=== PATIENT | female | born 1940 | race Caucasian/White ===

== ENCOUNTER 2019-11-25 21:43 | Observation (INO) | payer MEDICARE ==
[2019-11-25] MEDS ORDERED: ASPIRIN 81 MG CHEWABLE TABLET ONE (22:26)
[2019-11-25] MEDS ORDERED: FENTANYL CITR 100 MCG/2 ML ONE (22:28)
[2019-11-25 23:03] LABS: Absolute Lymphocytes (CBC) 2.8 K/uL (0.7-4.9); Basophils % 0.5 % (0-1.3); Hematocrit 41.9 % (36.0-45.0); Lymphocytes % 41.5 % (15.3-44.8); MPV 8.2 fL (7.6-11.3); RBC Red Blood Cell Count 4.55 M/uL (3.86-4.86)
[2019-11-25 23:09] LABS: Protime INR 0.98
[2019-11-25 23:31] LABS: ALT/SGPT 34 U/L (12-78); AST/SGOT 17 U/L (15-37); Albumin 3.9 g/dL (3.4-5.0); Alkaline Phosphatase 73 U/L (45-117); BUN Blood Urea Nitrogen 23 mg/dL (7-18); Bicarbonate 30 mmol/L (21-32); Bilirubin Direct 0.2 mg/dL (0-0.2); Bilirubin Total 0.4 mg/dL (0.2-1.0); Glucose Level 117 mg/dL (74-106); NT PRO-BNP 248 pg/mL (<450); Potassium 3.5 mmol/L (3.5-5.1); Protein, Total 6.7 g/dL (6.4-8.2); Sodium Level 143 mmol/L (136-145); Troponin (Emerg Dept Use Only) < 0.02 ng/mL (0.0-0.045)
--- NOTE | 2019-11-26 00:51 | ER ---
Nurse's Notes [facility] Name: Tiara Neal Age: 79 yrs Sex: Female : 1940 Arrival Date: 11/25/2019 Time: 21:47 Bed 24 Private MD: Diagnosis: Chest pain, unspecified;Pain in left shoulder Presentation: 11/25 21:55 Presenting complaint: Patient states: L shoulder pain radiating to the L arm, ca1 intermittent, lasting 10 minutes at a time with SOB. Pain started 1-2 weeks ago. Pt has HX of heart attack and CABG. Denies cough, fever, injury to L shoulder and arm. Transition of care: patient was not received from another setting of care. Onset of symptoms was November 25, 2019. Risk Assessment: Do you want to hurt yourself or someone else? Patient reports no desire to harm self or others. Initial Sepsis Screen: Does the patient meet any 2 criteria? No. Patient's initial sepsis screen is negative. Does the patient have a suspected source of infection? No. Patient's initial sepsis screen is negative. Care prior to arrival: None. 21:55 Method Of Arrival: Wheelchair ca1 21:55 Acuity: VIANCA 3 ca1 Triage Assessment: 22:50 General: Appears in no apparent distress. Respiratory: Onset: The symptoms/episode iw began/occurred yesterday, the patient has mild shortness of breath. Respiratory: Airway is patent. Historical: - Allergies: 22:04 Codeine; ca1 - PMHx: 22:04 Myocardial infarction; Hypertension; ca1 - PSHx: 22:04 CABG; Cholecystectomy; Hysterectomy; ca1 - Immunization history:: Adult Immunizations up to date, Pneumococcal vaccine is up to date, Flu vaccine is up to date. - Social history:: Smoking status: Patient/guardian denies using tobacco, never smoked. - Ebola Screening: : Patient negative for fever greater than or equal to 101.5 degrees Fahrenheit, and additional compatible Ebola Virus Disease symptoms Patient denies exposure to infectious person Patient denies travel to an Ebola-affected area in the 21 days before illness onset No symptoms or risks identified at this time. Screenin:09 Abuse screen: Denies threats or abuse. Denies injuries from another. Nutritional iw screening: No deficits noted. Tuberculosis screening: No symptoms or risk factors identified. 11/26 02:21 Fall Risk IV access (20 points). Ambulatory Aid- Crutches/Cane/Walker (15 pts). iw Assessment: 11/25 22:09 General: Appears in no apparent distress. comfortable, Behavior is calm, cooperative. iw Pain: Complains of pain in back and chest. Neuro: Level of Consciousness is awake, alert, obeys commands, Oriented to person, place, time, situation, Moves all extremities. Full function. Cardiovascular: Rhythm is sinus rhythm. Cardiovascular: Reports chest pain, shortness of breath, Heart tones S1 S2 present Capillary refill < 3 seconds in bilateral fingers. Respiratory: Airway is patent Respiratory effort is even, unlabored, Respiratory pattern is regular, symmetrical, Breath sounds are clear bilaterally. Respiratory: Reports shortness of breath at rest on exertion. GI: Abdomen is flat, non-distended. Derm: Skin is intact, is healthy with good turgor. Musculoskeletal: Range of motion: intact in all extremities. 22:48 Reassessment: Patient appears in no apparent distress at this time. Patient and/or iw family updated on plan of care and expected duration. Pain level reassessed. Patient is alert, oriented x 3, equal unlabored respirations, skin warm/dry/pink. pt states pain hits her intermittently to left shoulder and left upper back up to neck, feels sharp, lasts a few seconds when it hits, pt denies pain at this time, pt denies need for pain medicine at this time, pt took ASA 325 mg earlier today Patient denies pain at this time. 11/26 00:37 Reassessment: Patient appears in no apparent distress at this time. Patient and/or iw family updated on plan of care and expected duration. Pain level reassessed. Patient is alert, oriented x 3, equal unlabored respirations, skin warm/dry/pink. pt agrees to be admitted for observation. Vital Signs: 11/25 22:04 Pulse 71; Resp 16; Temp 98.3(O); Pulse Ox 99% on R/A; Weight 55.79 kg (R); Height 5 ft. ca1 (152.40 cm) (R); Pain 8/10; 22:06 BP 193 / 79; iw 22:47 BP 174 / 56; Pulse 63; Resp 16; Pulse Ox 98% on R/A; Pain 0/10; iw 23:57 BP 172 / 71; Pulse 65; Resp 16; Pulse Ox 100% on R/A; iw 11/26 00:59 BP 176 / 68; Pulse 64; Resp 16; Pulse Ox 100% on R/A; Pain 0/10; iw 11/25 22:04 Body Mass Index 24.02 (55.79 kg, 152.40 cm) ca1 ED Course: 11/25 21:47 Patient arrived in ED. ds1 21:57 Wilian Norris PA is PHCP. cp 21:57 Chacorta Lepe MD is Attending Physician. cp 22:02 Triage completed. ca1 22:04 Arm band placed on right wrist. ca1 22:06 Lala Foreman, ANDRES is Primary Nurse. iw 22:09 Patient has correct armband on for positive identification. iw 22:24 XRAY Chest (1 view) In Process Unspecified. EDMS 22:48 Inserted saline lock: 20 gauge in left upper arm, using aseptic technique. iw 11/26 00:50 David Gamble MD is Hospitalizing Provider. cp 01:00 No provider procedures requiring assistance completed. Patient admitted, IV remains in iw place. Administered Medications: 11/25 23:20 Not Given (Patient Refused): fentaNYL (PF) 25 mcg IVP once; RASS on ADMIN: Combtv4, iw Very Agttd3, Agttd2, Rstlss1, AlertClm0, Drwsy-1, Lt Sdtn-2, Mod Sdtn-3, Dp Sdtn-4, UnArsble-5 23:45 Drug: Aspirin Chewable Tablet 324 mg Route: PO; iw 23:52 Follow up: Response: No adverse reaction iw Outcome: 11/26 00:50 Decision to Hospitalize by Provider. cp 02:21 Admitted to ER Hold. Please see [facility] for further documentation. iw 02:21 Condition: good 02:21 Discharge instructions given to patient, family, Instructed on the need for admit, Demonstrated understanding of instructions. 10:16 Patient left the ED. em1 Signatures: Dispatcher [employer] EDIA Ana Benoit ds1 Lala Foreman, Yazan Prabhakar RN em1 Wilian Norris PA PA cp Acob, Cheryl, RN RN ca1
--- NOTE | 2019-11-26 00:51 | EDPHYS ---
Physician Documentation [facility] Name: Tiara Neal Age: 79 yrs Sex: Female : 1940 Arrival Date: 11/25/2019 Time: 21:47 Bed 24 Private MD: ED Physician Chacorta Lepe HPI: 11/25 22:12 This 79 yrs old Female presents to ER via Wheelchair with complaints of cp Shoulder Pain, Shortness Of Breath. 22:12 The patient or guardian complains of pain, that is acute. posterior left shoulder and cp upper left back. 22:12 Context: resulted from an unknown reason, The patient reports no decreased range of cp motion. Onset: The symptoms/episode began/occurred 1-2 weeks. 22:12 Modifying factors: The symptoms are aggravated by nothing. cp 22:12 Associated signs and symptoms: Pertinent positives: shortness of breath, Pertinent cp negatives: abdominal pain, diaphoresis, neck pain, Weakness in left arm. Severity of symptoms: in the emergency department the symptoms have improved, no current chest pain. Treatment prior to arrival includes: took nitro. Historical: - Allergies: 22:04 Codeine; ca1 - PMHx: 22:04 Myocardial infarction; Hypertension; ca1 - PSHx: 22:04 CABG; Cholecystectomy; Hysterectomy; ca1 - Immunization history:: Adult Immunizations up to date, Pneumococcal vaccine is up to date, Flu vaccine is up to date. - Social history:: Smoking status: Patient/guardian denies using tobacco, never smoked. - Ebola Screening: : Patient negative for fever greater than or equal to 101.5 degrees Fahrenheit, and additional compatible Ebola Virus Disease symptoms Patient denies exposure to infectious person Patient denies travel to an Ebola-affected area in the 21 days before illness onset No symptoms or risks identified at this time. ROS: 22:20 Constitutional: Negative for body aches, chills, fever, poor PO intake. cp 22:20 Eyes: Negative for injury, pain, redness, and discharge. cp 22:20 ENT: Negative for drainage from ear(s), ear pain, sore throat, difficulty swallowing, difficulty handling secretions. 22:20 Cardiovascular: Positive for chest pain, Negative for edema, palpitations. 22:20 Respiratory: Positive for shortness of breath, Negative for cough, wheezing. 22:20 Abdomen/GI: Negative for abdominal pain, nausea, vomiting, and diarrhea. 22:20 MS/extremity: Positive for pain, of the left shoulder and left arm, Negative for injury or acute deformity, decreased range of motion, paresthesias. 22:20 Skin: Negative for diaphoresis, rash. 22:20 Neuro: Negative for altered mental status, headache, syncope, weakness. 22:20 All other systems are negative. Exam: 22:15 ECG was reviewed by the Attending Physician. cp 22:25 Constitutional: The patient appears in no acute distress, alert, awake, comfortable, cp non-diaphoretic, non-toxic, well developed, well nourished. 22:25 Head/Face: Normocephalic, atraumatic. cp 22:25 Eyes: Periorbital structures: appear normal, Conjunctiva: normal, no exudate, no injection, Sclera: no appreciated abnormality, Lids and lashes: appear normal, bilaterally. 22:25 ENT: External ear(s): are unremarkable, Nose: is normal, Mouth: is normal, Posterior pharynx: is normal, airway is patent, no erythema, no exudate. 22:25 Neck: External neck: is normal, ROM/movement: is normal, is supple, without pain, no range of motions limitations, no nuchal rigidity. 22:25 Chest/axilla: Inspection: normal, Palpation: is normal, no crepitus, no tenderness. 22:25 Cardiovascular: Rate: normal, Rhythm: regular, Edema: is not appreciated, JVD: is not appreciated. 22:25 Respiratory: the patient does not display signs of respiratory distress, Respirations: normal, no use of accessory muscles, no retractions, no splinting, no tachypnea, labored breathing, is not present, Breath sounds: are clear throughout, no decreased breath sounds, no stridor, no wheezing. 22:25 Abdomen/GI: Inspection: abdomen appears normal, Palpation: abdomen is soft and non-tender, in all quadrants. 22:25 Back: pain, that is mild, of the left trapezius and left scapular area, ROM is normal, muscle spasm, is not present. 22:25 Skin: no rash present. 22:25 Neuro: Orientation: to person, place \T\ time. Mentation: is normal, Motor: moves all fours, strength is normal, Sensation: is normal. Vital Signs: 22:04 Pulse 71; Resp 16; Temp 98.3(O); Pulse Ox 99% on R/A; Weight 55.79 kg (R); Height 5 ft. ca1 (152.40 cm) (R); Pain 8/10; 22:06 BP 193 / 79; iw 22:47 BP 174 / 56; Pulse 63; Resp 16; Pulse Ox 98% on R/A; Pain 0/10; iw 23:57 BP 172 / 71; Pulse 65; Resp 16; Pulse Ox 100% on R/A; iw 11/26 00:59 BP 176 / 68; Pulse 64; Resp 16; Pulse Ox 100% on R/A; Pain 0/10; iw 11/25 22:04 Body Mass Index 24.02 (55.79 kg, 152.40 cm) ca1 MDM: 11/25 22:03 Patient medically screened. 11/26 01:00 Data reviewed: vital signs, nurses notes, lab test result(s), EKG, radiologic studies, cp plain films, and as a result, I will admit patient. 01:00 Test interpretation: by ED physician or midlevel provider: ECG, plain radiologic cp studies. Physician consultation: David Gamble MD was called at 00:50, was contacted at 00:50, regarding admission, to the telemetry unit. patient's condition. 11/25 22:11 Order name: Basic Metabolic Panel cp 11/25 22:11 Order name: CBC with Diff; Complete Time: 00:01 cp 11/25 22:11 Order name: LFT's cp 11/25 22:11 Order name: Magnesium; Complete Time: 00:01 cp 11/25 22:11 Order name: NT PRO-BNP cp 11/25 22:11 Order name: PT-INR; Complete Time: 00:01 cp 11/25 22:11 Order name: Troponin (emerg Dept Use Only); Complete Time: 00:01 cp 11/25 22:11 Order name: D-Dimer; Complete Time: 00:01 cp 11/25 22:12 Order name: Basic Metabolic Panel; Complete Time: 00:01 EDMS 11/26 00:02 Interpretation: Normal except: CL 108; GLUC 117; BUN 23; GFR 64. cp 11/25 22:12 Order name: Liver (Hepatic) Function; Complete Time: 00:01 [facility] 11/25 22:12 Order name: NT PRO-BNP; Complete Time: 00:01 [facility] 11/26 01:24 Order name: Troponin I EDIA 11/26 01:25 Order name: Lipid Profile EDIA 11/26 01:25 Order name: Lipid Profile [facility] 11/25 22:11 Order name: XRAY Chest (1 view) 11/25 22:11 Order name: EKG; Complete Time: 22:13 cp 11/25 22:11 Order name: Cardiac monitoring; Complete Time: 22:13 cp 11/25 22:11 Order name: EKG - Nurse/Tech; Complete Time: 22:13 cp 11/25 22:11 Order name: IV Saline Lock; Complete Time: 22:47 cp 11/25 22:11 Order name: Labs collected and sent; Complete Time: 22:47 cp 11/25 22:11 Order name: O2 Per Protocol; Complete Time: 22:47 cp 11/25 22:11 Order name: O2 Sat Monitoring; Complete Time: 22:47 cp 11/26 01:24 Order name: Heart Healthy EDIA 11/26 01:24 Order name: Echo with Doppler EDIA 11/26 01:24 Order name: EKG Electrocardiogram [facility] 11/26 01:24 Order name: EKG Electrocardiogram EDIA EC/15 22:15 Rate is 63 beats/min. Rhythm is regular. DE interval is prolonged at 202 msec. QRS cp interval is normal. QT interval is normal. Interpreted by me. Reviewed by me. Administered Medications: 23:20 Not Given (Patient Refused): fentaNYL (PF) 25 mcg IVP once; RASS on ADMIN: Combtv4, iw Very Agttd3, Agttd2, Rstlss1, AlertClm0, Drwsy-1, Lt Sdtn-2, Mod Sdtn-3, Dp Sdtn-4, UnArsble-5 23:45 Drug: Aspirin Chewable Tablet 324 mg Route: PO; iw 23:52 Follow up: Response: No adverse reaction iw Disposition: 11/27 07:33 Co-signature as Attending Physician, Chacorta Lepe MD I agree with the assessment and tw4 plan of care. Disposition: 11/26/19 00:50 Hospitalization ordered by David Gambel for Observation. Preliminary diagnosis are Chest pain, unspecified, Pain in left shoulder. - Bed requested for Telemetry/MedSurg (observation). - Status is Observation. em1 - Condition is Stable. - Problem is new. - Symptoms have improved. UTI on Admission? No Signatures: Dispatcher [employer] EDMS Natalee Pope RN RN kl Lala Foreman RN RN [facility], Yazan em1 Mackenzie Marte RN RN tl1 Wilian Norris PA PA Chacorta Neal MD MD tw4 Cheryl Ivory RN RN ca1 Corrections: (The following items were deleted from the chart) 11/26 01:49 00:50 Hospitalization Ordered by David Gamble MD for Observation. Preliminary tl1 diagnosis is Chest pain, unspecified; Pain in left shoulder. Bed requested for Telemetry/MedSurg (observation). Status is Observation. Condition is Stable. Problem is new. Symptoms have improved. UTI on Admission? No. cp 08:14 01:49 11/26/2019 00:50 Hospitalization Ordered by David Gamble MD for Observation. kl Preliminary diagnosis is Chest pain, unspecified; Pain in left shoulder. Bed requested for [facility] ER HOLD. Status is Observation. Condition is Stable. Problem is new. Symptoms have improved. UTI on Admission? No. tl1 10:16 08:14 11/26/2019 00:50 Hospitalization Ordered by David Gamble MD for Observation. em1 Preliminary diagnosis is Chest pain, unspecified; Pain in left shoulder. Bed requested for Telemetry/MedSurg (observation). Status is Observation. Condition is Stable. Problem is new. Symptoms have improved. UTI on Admission? No. libia
[2019-11-26] MEDS ORDERED: MORPHINE 4 MG/ML SYR IV PRN (01:19)
[2019-11-26] MEDS ORDERED: ALPRAZOLAM 0.25 MG TABLET PO PRN (01:19)
[2019-11-26] MEDS ORDERED: ACETAMINOPHEN 500 MG TAB PO PRN (01:19)
[2019-11-26 03:20] VITALS: BMI 23.8
[2019-11-26] MEDS ORDERED: REGADENOSON 0.4 MG/5 ML SYR IV ONE (08:10)
--- NOTE | 2019-11-26 08:10 | RAD REPORT ---
EXAM DESCRIPTION: RAD - Chest Single View - 11/25/2019 10:24 pm CLINICAL HISTORY: CHEST PAIN Chest pain. COMPARISON: No comparisons FINDINGS: Portable technique limits examination quality. Mild interstitial pulmonary edema is seen. Small nodular focus is seen in the left mid lung. The hear t is upper limit of normal in size. Sternotomy wires present. IMPRESSION: Mild CHF.
--- NOTE | 2019-11-26 08:39 | P.HP ---
Certification for Inpatient Patient admitted to: Observation With expected LOS: <2 Midnights Patient will require the following post-hospital care: None Practitioner: I am a practitioner with admitting privileges, knowledge of patient current condition, hospital course, and medical plan of care. Services: Services provided to patient in accordance with Admission requirements found in Title 42 Section 412.3 of the Code of Federal Regulations Patient History Date of Service: 11/26/19 Reason for admission: Left sided neck and left shoulder pain History of Present Illness: patient is a 79-year-old female who comes into the emergency room with pain in her left shoulder and left neck region. This has been going on for the last 48 hours. Her symptoms are not improving and she came to the hospital for evaluation. In the emergency room her initial workup has been unremarkable. Troponins and CT scan are negative. There was concern that patient was having atypical signs of cardiac chest pain. At this time as long as she is ruled out for acute coronary syndrome will go ahead and do a Lexiscan to evaluate her coronary arteries. Hopefully will be able to discharge her after this is performed. Otherwise patient with no new complaints. Allergies acetaminophen [From Tylenol-Codeine #3] Adverse Reaction (Mild, Verified 01:19) Nausea/Vomiting - Past Medical/Surgical History Has patient received pneumonia vaccine in the past: No Diabetic: No -: AR -: Hypertension -: Hypercholesteremia -: Quadruple bypass - Family History Father Family History: Reviewed- Non-Contributory - Social History Smoking Status: Never smoker Alcohol use: No Place of Residence: Home Review of Systems 10-point ROS is otherwise unremarkable Physical Examination - Vital Signs Temperature: 97.4 F Blood Pressure: 167/64 Pulse: 62 Respirations: 16 Pulse Ox (%): 97 - Physical Exam General: Alert, In no apparent distress, Oriented x1, Cooperative HEENT: Atraumatic, PERRLA, Mucous membr. moist/pink, EOMI, Sclerae nonicteric Neck: Supple, 2+ carotid pulse no bruit, No LAD, Without JVD or thyroid abnormality Respiratory: Clear to auscultation bilaterally, Normal air movement Cardiovascular: Regular rate/rhythm, Normal S1 S2, No murmurs Gastrointestinal: Normal bowel sounds, Soft and benign, Non-distended, No tenderness Musculoskeletal: No clubbing, No swelling, No tenderness Integumentary: No rashes Neurological: Normal gait, Normal speech, Normal strength at 5/5 x4 extr, Normal tone, Normal affect Lymphatics: No axilla or inguinal lymphadenopathy - Studies Laboratory Data (last 24 hrs) 11/25/19 22:28: PT 11.6, INR 0.98 11/25/19 22:28: WBC 6.9, Hgb 14.0, Hct 41.9, Plt Count 229 11/25/19 22:28: Sodium 143, Potassium 3.5, BUN 23 H, Creatinine 0.86, Glucose 117 H, Magnesium 2.0, Total Bilirubin 0.4, AST 17, ALT 34, Alkaline Phosphatase 73 Assessment & Plan - Problems (Diagnosis) (1) Chest pain, rule out acute myocardial infarction Current Visit: No Status: Acute (2) Hypertension Current Visit: Yes Status: Acute Qualifiers: Hypertension type: essential hypertension Qualified Code(s): I10 - Essential (primary) hypertension (3) Dyspnea on exertion Current Visit: Yes Status: Acute - Plan 1. Serial troponins and EKG 2. Cardiology consultation 3. Echocardiogram and inpatient stress test(pending cardiology evaluation) 4. Anti-platelet therapy, anti coagulation, beta-fang, statin, and O2 as needed 5. IV morphine for pain 6. Nitro p.r.n. Discharge Plan: Home Plan to discharge in: 24 Hours - Advance Directives Does patient have a Living Will: No Does patient have a Durable POA for Healthcare: No - Code Status/Comfort Care Code Status Assessed: Yes Code Status: Full Code Critical Care: Yes Time Spent Managing PTS Care (In Minutes): 45
[2019-11-26] MEDS ORDERED: ASPIRIN EC 81 MG TAB PO SCH (09:00)
[2019-11-26] MEDS ORDERED: ENOXAPARIN 40 MG/0.4 ML SQ SCH (09:00)
[2019-11-26] MEDS ORDERED: METOPROLOL TAR 50 MG TAB PO SCH (09:00)
--- NOTE | 2019-11-26 10:37 | RAD REPORT ---
EXAM DESCRIPTION: NM - Rest Stress Cardiac Imaging - 11/26/2019 10:23 am CLINICAL HISTORY: CP Chest pain. COMPARISON: No comparisons TECHNIQUE: The patient was administered approximately 10mCi of Tc 99m Sestamibi prior to resting SPE CT imaging of the heart. The patient was then administered approximately 30 mCi of Tc 99m Sestamibi f ollowing exercise or pharmacologic stress. Multiplanar SPECT images were reviewed. FINDINGS: No stress induced ischemic defect is seen to suggest stress induced ischemia. No fixed def ect is seen to suggest hibernating myocardium or scarred myocardium. The end diastolic volume is 63 ml, the end systolic volume is 24 ml, and the ejection fraction is 62 %. IMPRESSION: No stress induced ischemia.
[2019-11-26 10:47] VITALS: O2SAT 100
--- NOTE | 2019-11-26 10:59 | EKG ---
Test Date: 2019-11-25 Test Time: 22:00:52 Spout Positioner: BERTHA MEASUREMENT RESULTS: Intervals: Rate: 63 NV: 202 QRSD: 80 QT: 384 QTc: 392 [place]: P: 67 NV: 202 QRS: 6 T: 31 INTERPRETIVE STATEMENTS: Normal sinus rhythm Normal ECG No previous ECG available for comparison Electronically Signed On 11-26-19 10:58:16 DYNAMITE RECLAIMER by Ankit Carlson
--- NOTE | 2019-11-26 11:15 | ECHO ---
HEIGHT: 5 ft 0 in WEIGHT: 122 lb 0 oz DATE OF STUDY: 11/16/[address]: David Gamble MD 2-DIMENSIONAL: YES M.MODE: YES DOPPLER: YES COLOR FLOW: YES TDS: NO PORTABLE: NO DEFINITY: NO BUBBLE STUDY: NO DIAGNOSIS: CHEST PAIN/ ACUTE CORONARY ARTERY DISEASE CARDIAC HISTORY: CATHERIZATION: YES SURGERY: YES PROSTHETIC VALVE: NO PACEMAKER: NO MEASUREMENTS (cm) DIASTOLIC (NORMALS) SYSTOLIC (NORMALS) IVSd 1.1 (0.6-1.2) LA Diam 3.7 (1.9-4.0) LVEF 78% LVIDd 3.7 (3.5-5.7) LVIDs 2.0 (2.0-3.5) %FS 45% LVPWd 1.0 (0.6-1.2) Ao Diam 2.5 (2.0-3.7) 2 DIMENSIONAL ASSESSMENT: RIGHT ATRIUM: NORMAL LEFT ATRIUM: NORMAL RIGHT VENTRICLE: NORMAL LEFT VENTRICLE: NORMAL TRICUSPID VALVE: NORMAL MITRAL VALVE: NORMAL PULMONIC VALVE: NORMAL AORTIC VALVE: NORMAL PERICARDIAL EFFUSION: NONE AORTIC ROOT: NORMAL LEFT VENTRICULAR WALL MOTION: NORMAL. DOPPLER/COLOR FLOW: NORMAL. COMMENTS: NORMAL 2D ECHO WITH DOPPLER. NO WALL MOTION ABNORMALITY. EFFUSION. TECHNOLOGIST: KARYN MCCOY
--- NOTE | 2019-11-26 11:20 | TREADPHA ---
DX: CHEST PAIN Date of Study: 11/26/2019 Ht: 5 0 Wt: 122 lb 0 oz Consulting Physician: KURT MEDICATIONS: TYLENOL, XANAX, ASPIRIN, LOVENOX, LOPRESSOR, MORPHINE SULFATE HISTORY: HYPERTENSION, BYPASS SURGERY, HIGH CHOLESTEROL. 79 YEAR OLD FEMALE WITH COMPLAINTS OF LEFT SHOULDER, BACK PAIN PHYSICIAL EXAMINATION: RESTING B.P.: 189/70 RESTING H.R.: 64 RESTING EKG: SINUS RHYTHM, NORMAL ST PROTOCOL: LEXISCAN EXERCISE TIME: 3:30 B.P. AT [place]AK STRESS: 163/69 IMPRESSION: LEXISCAN STRESS TEST PERFORMED. CARDIOLITE INJECTED PER PROTOCOL. NO SUPRA VENTRICULAR TACHYCARDIA, NO VENTRICULAR TACHYCARDIA, NO ARRHYTHMIA NOTED. PATIENT DENIED CHEST PAIN. TOLERATED WELL. PLEASE SEE NUCLEAR MEDICINE REPORT.
[2019-11-26 16:01] VITALS: BP 140/80; TEMP 97.6
--- NOTE | 2019-11-28 01:01 | P.DS ---
Discharge Date: 09/26/19 Disposition: ROUTINE DISCHARGE Discharge Condition: GOOD Reason for Admission: Left sided neck and left shoulder pain - Problems (1) Chest pain, rule out acute myocardial infarction Status: Acute (2) Hypertension Status: Acute Qualifiers: Hypertension type: essential hypertension Qualified Code(s): I10 - Essential (primary) hypertension (3) Dyspnea on exertion Status: Acute Brief History of Present Illness: patient is a 79-year-old female who comes into the emergency room with pain in her left shoulder and left neck region. This has been going on for the last 48 hours. Her symptoms are not improving and she came to the hospital for evaluation. In the emergency room her initial workup has been unremarkable. Troponins and CT scan are negative. There was concern that patient was having atypical signs of cardiac chest pain. At this time as long as she is ruled out for acute coronary syndrome will go ahead and do a Lexiscan to evaluate her coronary arteries. Hopefully will be able to discharge her after this is performed. Otherwise patient with no new complaints. Hospital Course: PATIENT WORKUP WAS NEGATIVE. AT THIS TIME PATIENT IS TENDER FOR DISCHARGE HOME WITH OUTPATIENT FOLLOW-UP. Vital Signs/Physical Exam: Temp Pulse Resp BP Pulse Ox 97.6 F 77 16 140/80 96 11/26/19 12:00 11/26/19 12:00 11/26/19 12:00 11/26/19 12:00 11/26/19 12:00 General: Alert, In no apparent distress, Oriented x3 Laboratory Data at Discharge: WBC 6.9 K/uL (4.3-10.9) 11/25/19 22:28 Hgb 14.0 g/dL (12.0-15.0) 11/25/19 22:28 Hct 41.9 % (36.0-45.0) 11/25/19 22:28 Plt Count 229 K/uL (152-406) 11/25/19 22:28 PT 11.6 SECONDS (9.5-12.5) 11/25/19 22:28 INR 0.98 11/25/19 22:28 Sodium 143 mmol/L (136-145) 11/25/19 22:28 Potassium 3.5 mmol/L (3.5-5.1) 11/25/19 22:28 BUN 23 mg/dL (7-18) H 11/25/19 22:28 Creatinine 0.86 mg/dL (0.55-1.3) 11/25/19 22:28 Glucose 117 mg/dL (74-106) H 11/25/19 22:28 Magnesium 2.0 mg/dL (1.8-2.4) 11/25/19 22:28 Total Bilirubin 0.4 mg/dL (0.2-1.0) 11/25/19 22:28 AST 17 U/L (15-37) 11/25/19 22:28 ALT 34 U/L (12-78) 11/25/19 22:28 Alkaline Phosphatase 73 U/L (45-117) 11/25/19 22:28 Troponin I < 0.02 ng/mL (0.0-0.045) 11/26/19 05:20 Triglycerides 83 mg/dL (<150) 11/26/19 05:20 Cholesterol 141 mg/dL (<200) 11/26/19 05:20 HDL Cholesterol 68 mg/dL (40-60) H 11/26/19 05:20 Cholesterol/HDL Ratio 2.07 11/26/19 05:20 Home Medications: Metoprolol Tartrate [Lopressor*] 25 mg PO BID tab 11/26/19 Patient Discharge Instructions: OK TO DC IV AND DC HOME if stress test is negative. FOLLOW-UP WITH PRIMARY CARE PROVIDER IN 1-2 WEEKS. FOLLOW-UP WITH CARDIOLOGY IN 1-2 WEEKS. RETURN TO THE ER IF Symptoms worsen. CALL DR. WESTBROOK AT [phone] IF ANY QUESTIONS REGARDING HOSPITAL STAY. PLEASE CALL THE FLOOR AT [phone] IF ANY MEDICATION OR NURSING QUESTIONS. Diet: AHA Activity: Fall precautions Time spent managing pt's care (in minutes): 45
== END 2019-11-26 13:10 | disposition home or self-care (01) ==
LOC: ER 21:43 → ERHOLD 11-26 01:19 → 2ND 11-26 08:45
PROVIDERS: ADMIT Hospitalist; ATTEND Hospitalist
DX: R07.9 Chest pain, unspecified (principal); R06.00 Dyspnea, unspecified; I10 Essential (primary) hypertension; E78.00 Pure hypercholesterolemia, unspecified; I25.2 Old myocardial infarction
CPT/HCPCS: 93005; 93017; 93306; 85025; 80048; 36415; 83735; 85610; 80061; 85379; 80076; 84484 ×2; 83880; 71045; 78452; 99285; J3010; J2785; A9500; G0378 ×2; J1650